=== PATIENT | male | born 1960 | race Caucasian/White ===

== ENCOUNTER 2017-11-14 11:17 | Inpatient (IN) | payer MEDICARE, MEDICAID ==
[~2017-11-14] VITALS: Ht 172.7 cm; Wt 65.9 kg
[2017-11-14] MEDS ORDERED: morphine 4 MG/ML inj SYRINge IV ONE ×2 (11:50→13:20)
[2017-11-14] MEDS ORDERED: NO HOME MEDS (11:57)
[2017-11-14 12:18] LABS: BASOPHILS # (AUTO) 0.1 X10'3 (0-0.2); BASOPHILS % (AUTO) 0.9 % (0-1); EOSINOPHILS # (AUTO) 0.1 X10'3 (0-0.9); EOSINOPHILS % (AUTO) 0.7 % (0-6); HEMATOCRIT 44.9 % (42.0-52.0); HEMOGLOBIN 15.4 g/dl (14.0-17.9); LYMPHOCYTES # (AUTO) 2.1 X10'3 (1.1-4.8); LYMPHOCYTES % (AUTO) 23.5 % (21-51); MEAN CORPUSCULAR HEMOGLOBIN 34.8 PG (27.0-31.0); MEAN CORPUSCULAR HGB CONC 34.2 % (33.0-36.5); MEAN CORPUSCULAR VOLUME 101.9 FL (78-98); MEAN PLATELET VOLUME 8.4 FL (7.4-10.4); MONOCYTES # (AUTO) 0.4 X10'3 (0-0.9); MONOCYTES % (AUTO) 4.6 % (2-12); NEUTROPHILS # (AUTO) 6.4 X10'3 (1.8-7.7); NEUTROPHILS % (AUTO) 70.3 % (42-75); PLATELET COUNT 254 X10'3 (140-440); RED BLOOD COUNT 4.41 X10'6 (4.70-6.10); RED CELL DISTRIBUTION WIDTH 14.7 % (11.5-14.5); WHITE BLOOD COUNT 9.1 X10'3 (4.5-11.0)
[2017-11-14 12:49] LABS: ALANINE AMINOTRANSFERASE 19 U/L (12-78); ALBUMIN 3.6 G/DL (3.4-5.0); ALKALINE PHOSPHATASE 85 IU/L (46-116); ANION GAP 12 (8-16); ASPARTATE AMINO TRANSFERASE 43 U/L (10-37); BILIRUBIN,TOTAL 0.5 MG/DL (0.1-1.0); BLOOD UREA NITROGEN 4 MG/DL (7-18); BUN/CREATININE RATIO 6.3 (5.4-32.0); CALCIUM 8.8 MG/DL (8.5-10.1); CHLORIDE 100 MMOL/L (99-107); CREATININE 0.63 MG/DL (0.60-1.10); GLUCOSE 79 MG/DL (70-104); POTASSIUM 4.2 MMOL/L (3.5-5.1); SODIUM 135 MMOL/L (135-145); TOTAL CARBON DIOXIDE 23.1 MMOL/L (24-32); TOTAL PROTEIN 7.3 G/DL (6.4-8.2); eGFR > 90 ML/MIN
[2017-11-14] MEDS ORDERED: ondansetron/PF 4mg/2ml inj IV PRN (13:55)
[2017-11-14] MEDS ORDERED: acetaminophen 325mg tablet PO PRN (13:55)
[2017-11-14] MEDS ORDERED: magnesium 4gm in 100ml NS 100 ML IV PRN (13:55)
[2017-11-14] MEDS ORDERED: potassium Cl 40MEQ/NS 500ml 500 ML IV PRN ×2 (13:55)
[2017-11-14] MEDS ORDERED: morphine 2 MG/ML inj. syringe IV PRN ×2 (13:55)
[2017-11-14] MEDS ORDERED: bisacodyl 10mg suppository rectal RC PRN (13:55)
[2017-11-14] MEDS ORDERED: magnesium Cl slow-release 64mg tablet PO PRN (13:55)
[2017-11-14] MEDS ORDERED: mag hydrox/Alum hydrox/simeth 30ml oral suspension PO PRN (13:55)
[2017-11-14] MEDS ORDERED: tirofiban 5mg in NS 100mL 100 ML IV SCH (13:55)
[2017-11-14] MEDS ORDERED: magnesium hydroxide 30ml (MOM) UD suspension PO PRN (13:55)
[2017-11-14] MEDS ORDERED: magnesium 1gm/100ml D5W IVPB 100 ML IV PRN (13:55)
[2017-11-14] MEDS ORDERED: potassium Cl 20 mEq SR tablet PO PRN ×2 (13:55)
[2017-11-14] MEDS ORDERED: nitroGLYCERIN-Tridil 50MG/D5W 250 ML IV SCH ×2 (13:59→17:35)
[2017-11-14] MEDS ORDERED: heparin 10,000 units/1 ML INJ IV PRN (14:00)
[2017-11-14 14:18] LABS: PARTIAL THROMBOPLASTIN TIME 33 SECONDS (22-32)
[2017-11-14] MEDS ORDERED: heparin 10,000 units/1 ML INJ IV ONE (14:40)
[2017-11-14 15:00] VITALS: BP 139/91
[2017-11-14] MEDS: atorvastatin 20mg tablet PO SCH (15:56)
[2017-11-14] MEDS: metoprolol tartrate 12.5mg (1/2 tablet) PO SCH ×2 (15:57→19:31)
[2017-11-14] MEDS: folic acid 1mg tablet PO SCH (15:58)
[2017-11-14] MEDS: nicotine 21mg patch - 24 hr TD SCH (15:58)
[2017-11-14 17:00] VITALS: BP 143/72
[2017-11-14] MEDS: morphine 4 MG/ML inj SYRINge IV PRN (18:39)
[2017-11-14 19:00] VITALS: BP 133/76
[2017-11-14] MEDS: LORazepam 2 mg/ml vial IV PRN (19:31)
[2017-11-14] MEDS: normal saline 1000ml 1,000 ML IV SCH (19:31)
[2017-11-14] MEDS: thiamine 100mg tablet PO SCH (19:31)
[2017-11-14] MEDS: docusate sod 100mg capsule PO SCH (19:33)
[2017-11-14 21:00] VITALS: BP 116/65
[2017-11-14 23:00] VITALS: BP 110/66
[2017-11-15] VITALS (17 sets, daily range): BP systolic 98–161; BP diastolic 49–88
[2017-11-15] MEDS: morphine 4 MG/ML inj SYRINge IV PRN ×3 (00:10→20:06)
[2017-11-15] MEDS: LORazepam 2 mg/ml vial IV PRN ×3 (02:12→19:25)
[2017-11-15] MEDS: normal saline 1000ml 1,000 ML IV SCH ×2 (02:24→07:34)
[2017-11-15 05:57] LABS: BASOPHILS # (AUTO) 0.1 X10'3 (0-0.2); BASOPHILS % (AUTO) 0.8 % (0-1); EOSINOPHILS # (AUTO) 0.2 X10'3 (0-0.9); EOSINOPHILS % (AUTO) 1.8 % (0-6); HEMOGLOBIN 12.7 g/dl (14.0-17.9); LYMPHOCYTES # (AUTO) 1.4 X10'3 (1.1-4.8); MEAN CORPUSCULAR HGB CONC 34.3 % (33.0-36.5); MEAN CORPUSCULAR VOLUME 102.2 FL (78-98); MEAN PLATELET VOLUME 8.1 FL (7.4-10.4); MONOCYTES # (AUTO) 0.6 X10'3 (0-0.9); MONOCYTES % (AUTO) 5.4 % (2-12); NEUTROPHILS # (AUTO) 8.1 X10'3 (1.8-7.7); PLATELET COUNT 233 X10'3 (140-440); RED BLOOD COUNT 3.62 X10'6 (4.70-6.10); RED CELL DISTRIBUTION WIDTH 15.2 % (11.5-14.5); WHITE BLOOD COUNT 10.3 X10'3 (4.5-11.0)
[2017-11-15 06:34] LABS: ALANINE AMINOTRANSFERASE 19 U/L (12-78); ALBUMIN 3.1 G/DL (3.4-5.0); ALKALINE PHOSPHATASE 70 IU/L (46-116); ANION GAP 7 (8-16); ASPARTATE AMINO TRANSFERASE 51 U/L (10-37); BILIRUBIN,TOTAL 0.7 MG/DL (0.1-1.0); BLOOD UREA NITROGEN 5 MG/DL (7-18); BUN/CREATININE RATIO 7.4 (5.4-32.0); CALCIUM 8.6 MG/DL (8.5-10.1); CHLORIDE 102 MMOL/L (99-107); CHOL/HDL RATIO 1.8 (0.00-4.99); CHOLESTEROL 109 MG/DL (0-200); CREATININE 0.68 MG/DL (0.60-1.10); GLUCOSE 93 MG/DL (70-104); HDL CHOLESTEROL 60 MG/DL (35-60); LDL CHOLESTEROL 40 MG/DL (50-100); POTASSIUM 4.2 MMOL/L (3.5-5.1); SODIUM 134 MMOL/L (135-145); TOTAL CARBON DIOXIDE 24.9 MMOL/L (24-32); TOTAL PROTEIN 6.3 G/DL (6.4-8.2); TRIGLYCERIDES 63 MG/DL (20-135); eGFR > 90 ML/MIN
[2017-11-15 06:52] LABS: TROPONIN I 8.76 NG/ML (0.0-0.05)
[2017-11-15] MEDS ORDERED: iohexol 350 MG/ML 50ML vial IV ONE ×2 (07:32→09:13)
[2017-11-15] MEDS ORDERED: nitroGLYCERIN-Tridil 50MG/D5W 250 ML IV ONE (07:32)
[2017-11-15] MEDS ORDERED: iohexol 350MG/ML 100ml bottle IV ONE ×2 (07:32→08:49)
[2017-11-15] MEDS ORDERED: LIDOcaine 1% 30ml preserv. free vial ONE (07:32)
[2017-11-15] MEDS ORDERED: fentaNYL/PF 50MCG/1 ML 2ML syringe ONE (07:32)
[2017-11-15] MEDS ORDERED: heparin 1,000unit/ml 10ml vial 10 ML ONE ×2 (07:32→09:57)
[2017-11-15] MEDS ORDERED: midazolam 2 mg/2 ml injection ONE (07:32)
[2017-11-15] MEDS: K and/or MAG REPLACEMENT MC SCH (08:00)
[2017-11-15] MEDS ORDERED: aspirin 81mg tablet.DR PO SCH (08:00)
[2017-11-15] MEDS ORDERED: LORazepam 2 mg/ml vial ONE ×2 (08:43→08:44)
[2017-11-15] MEDS ORDERED: ticagrelor 90mg tablet ONE (09:13)
[2017-11-15] MEDS ORDERED: clopidogrel 300mg tablet ONE (09:27)
[2017-11-15] MEDS: nicotine 21mg patch - 24 hr TD SCH (10:48)
[2017-11-15] MEDS ORDERED: acetaminophen 325mg tablet PO PRN (10:55)
[2017-11-15] MEDS ORDERED: cyclobenzaprine 10mg tablet PO PRN (10:55)
[2017-11-15] MEDS ORDERED: OXAZEpam 15mg capsule PO PRN (10:55)
[2017-11-15] MEDS ORDERED: aspirin 81mg tab.chew PO ONE (11:00)
[2017-11-15] MEDS ORDERED: HYDROcodone/acetaminophen 10/325mg tab PO PRN ×2 (11:00)
[2017-11-15] MEDS: thiamine 100mg tablet PO SCH ×2 (12:49→19:25)
[2017-11-15] MEDS: folic acid 1mg tablet PO SCH (12:49)
[2017-11-15] MEDS: metoprolol tartrate 12.5mg (1/2 tablet) PO SCH ×2 (12:49→19:25)
[2017-11-15] MEDS: docusate sod 100mg capsule PO SCH ×2 (12:50→19:25)
[2017-11-15] MEDS: atorvastatin 20mg tablet PO SCH (12:50)
[2017-11-15] MEDS: pantoprazole 40mg Tablet.DR PO SCH (12:51)
[2017-11-15] MEDS ORDERED: nitroGLYCERIN-Tridil 50MG/D5W 250 ML IV SCH ×2 (13:05→17:35)
[2017-11-16] VITALS (11 sets, daily range): BP systolic 103–150; BP diastolic 57–89
[2017-11-16] MEDS: LORazepam 2 mg/ml vial IV PRN (02:05)
[2017-11-16 04:36] LABS: ALANINE AMINOTRANSFERASE 19 U/L (12-78); ALBUMIN 2.8 G/DL (3.4-5.0); ALBUMIN/GLOBULIN RATIO 0.8 (1.1-1.5); ALKALINE PHOSPHATASE 61 IU/L (46-116); ANION GAP 5 (8-16); ASPARTATE AMINO TRANSFERASE 27 U/L (10-37); BILIRUBIN,TOTAL 0.9 MG/DL (0.1-1.0); BLOOD UREA NITROGEN 4 MG/DL (7-18); BUN/CREATININE RATIO 5.2 (5.4-32.0); CALCIUM 8.4 MG/DL (8.5-10.1); CHLORIDE 103 MMOL/L (99-107); CREATININE 0.77 MG/DL (0.60-1.10); GLUCOSE 100 MG/DL (70-104); POTASSIUM 4.1 MMOL/L (3.5-5.1); SODIUM 135 MMOL/L (135-145); TOTAL CARBON DIOXIDE 27.2 MMOL/L (24-32); TOTAL PROTEIN 6.1 G/DL (6.4-8.2); eGFR > 90 ML/MIN
[2017-11-16 06:23] LABS: BASOPHILS # (AUTO) 0.1 X10'3 (0-0.2); BASOPHILS % (AUTO) 0.9 % (0-1); EOSINOPHILS # (AUTO) 0.1 X10'3 (0-0.9); EOSINOPHILS % (AUTO) 1.4 % (0-6); HEMOGLOBIN 12.5 g/dl (14.0-17.9); LYMPHOCYTES # (AUTO) 1.1 X10'3 (1.1-4.8); LYMPHOCYTES % (AUTO) 14.2 % (21-51); MEAN CORPUSCULAR HEMOGLOBIN 35.2 PG (27.0-31.0); MEAN CORPUSCULAR HGB CONC 34.7 % (33.0-36.5); MEAN CORPUSCULAR VOLUME 101.3 FL (78-98); MEAN PLATELET VOLUME 7.9 FL (7.4-10.4); MONOCYTES # (AUTO) 0.6 X10'3 (0-0.9); MONOCYTES % (AUTO) 7.1 % (2-12); NEUTROPHILS # (AUTO) 6.2 X10'3 (1.8-7.7); NEUTROPHILS % (AUTO) 76.4 % (42-75); PLATELET COUNT 204 X10'3 (140-440); RED BLOOD COUNT 3.55 X10'6 (4.70-6.10); RED CELL DISTRIBUTION WIDTH 14.7 % (11.5-14.5); WHITE BLOOD COUNT 8.1 X10'3 (4.5-11.0)
[2017-11-16] MEDS: K and/or MAG REPLACEMENT MC SCH (08:00)
[2017-11-16] MEDS ORDERED: atorvastatin 10mg tablet PO SCH (08:00)
[2017-11-16] MEDS ORDERED: clopidogrel 75mg tablet PO SCH (08:00)
[2017-11-16] MEDS ORDERED: aspirin 325mg tablet PO SCH (08:00)
[2017-11-16] MEDS ORDERED: metoprolol tartrate 25mg tablet PO SCH (08:55)
[2017-11-16] MEDS: morphine 4 MG/ML inj SYRINge IV PRN (08:56)
[2017-11-16] MEDS: folic acid 1mg tablet PO SCH (09:03)
[2017-11-16] MEDS: docusate sod 100mg capsule PO SCH (09:03)
[2017-11-16] MEDS: thiamine 100mg tablet PO SCH (09:03)
[2017-11-16] MEDS: nicotine 21mg patch - 24 hr TD SCH (09:04)
[2017-11-16] MEDS: pantoprazole 40mg Tablet.DR PO SCH (09:06)
[2017-11-16] MEDS ORDERED: ASPI81TA52 PO (12:21)
[2017-11-16] MEDS ORDERED: THI100T PO (12:21)
[2017-11-16] MEDS ORDERED: NITR0.4T48 SL (12:21)
[2017-11-16] MEDS ORDERED: METO25TA6 PO (12:21)
[2017-11-16] MEDS ORDERED: FOLI1TAB16 PO (12:21)
[2017-11-16] MEDS ORDERED: CLOP75TA35 PO (12:21)
[2017-11-16] MEDS ORDERED: ATOR10TA PO (12:21)
== END 2017-11-16 16:50 | disposition home or self-care (01) | DRG 247 ==
LOC: ER 11:18 → ED HOLD 13:54 → PCU 3S 14:55 → ICU 2S 11-15 10:12 → PCU 3S 11-16 10:15
PROVIDERS: ADMIT Internal Medicine; ATTEND Internal Medicine
PROC: 4A023N7 Measurement of Cardiac Sampling and Pressure, Left Heart, Percutaneous Approach (ICD-10-PCS; principal; 2017-11-15)
PROC: 027135Z Dilation of Coronary Artery, Two Arteries with Two Drug-eluting Intraluminal Devices, Percutaneous Approach (ICD-10-PCS; 2017-11-15)
PROC: B2111ZZ Fluoroscopy of Multiple Coronary Arteries using Low Osmolar Contrast (ICD-10-PCS; 2017-11-15)
PROC: B2151ZZ Fluoroscopy of Left Heart using Low Osmolar Contrast (ICD-10-PCS; 2017-11-15)
PROC: B3101ZZ Fluoroscopy of Thoracic Aorta using Low Osmolar Contrast (ICD-10-PCS; 2017-11-15)
DX: I21.4 Non-ST elevation (NSTEMI) myocardial infarction (principal); E78.5 Hyperlipidemia, unspecified; F12.90 Cannabis use, unspecified, uncomplicated; F41.9 Anxiety disorder, unspecified; M54.2 Cervicalgia; M54.9 Dorsalgia, unspecified; F10.20 Alcohol dependence, uncomplicated; G89.29 Other chronic pain; I10 Essential (primary) hypertension; I70.203 Unspecified atherosclerosis of native arteries of extremities, bilateral legs; F17.210 Nicotine dependence, cigarettes, uncomplicated; I07.1 Rheumatic tricuspid insufficiency; I25.10 Atherosclerotic heart disease of native coronary artery without angina pectoris; R91.1 Solitary pulmonary nodule; M48.00 Spinal stenosis, site unspecified; N40.0 Benign prostatic hyperplasia without lower urinary tract symptoms; Z88.5 Allergy status to narcotic agent; Z79.82 Long term (current) use of aspirin; Z79.899 Other long term (current) drug therapy; Z87.11 Personal history of peptic ulcer disease; Z82.49 Family history of ischemic heart disease and other diseases of the circulatory system; Z71.6 Tobacco abuse counseling; Z71.41 Alcohol abuse counseling and surveillance of alcoholic
CPT/HCPCS: 93306; 93458; 96374; 96376; 99285; C9600; C9601; 36415; 71045; 71046; 71250; 76937; 80053; 80061; 83735; 84484; 85025; 85347; 85610; 85730; 87070; 93005; 93922; 93925; 99152; 99153; A4620; A6257; A6449; C1725; C1769; C1874; J1644; J2060; J2250; J2270; J3010; J3246; J3490; J7030; Q9967